=== PATIENT | female | born 1955 | race Caucasian/White ===

== ENCOUNTER 2017-12-17 10:43 | Inpatient (IN) | payer BC ==
[2017-12-17 12:08] LABS: ADD MAN DIFF? NO
[2017-12-17] MEDS: SODIUM CHLORIDE 0.9% 1L BAG IV* (12:10)
[2017-12-17 12:12] LABS: BASOPHILS % 0.2 % (0.0-2.0); HEMATOCRIT 37.6 % (37.0-47.0); HEMOGLOBIN 12.4 g/dl (12.0-16.0); LYMPHOCYTES # 1.2 10^3/ul (0.8-2.9); LYMPHOCYTES % 6.1 % (15.0-51.0); MEAN CORPUSCULAR HEMOGLOBIN 28.1 pg (29.0-33.0); MEAN CORPUSCULAR VOLUME 85.1 fl (82.0-101.0); MEAN PLATELET VOLUME 9.2 fl (7.4-10.4); MONOCYTE # 0.8 10^3/ul (0.3-0.9); MONOCYTES % 3.8 % (0.0-11.0); NEUTROPHIL # 17.9 10^3/ul (1.6-7.5); NEUTROPHILS % 89.2 % (39.0-77.0); PLATELET COUNT 229 10^3/UL (140-415); RED BLOOD COUNT 4.42 10^6/ul (4.20-5.40); RED CELL DISTRIBUTION WIDTH 13.8 % (11.5-14.5)
[2017-12-17 12:31] LABS: INR 1.12; PROTIME 14.6 Sec (11.9-14.9); PT RATIO 1.1
[2017-12-17 12:32] LABS: ALANINE AMINOTRANSFERASE 25 IU/L (13-69); ALBUMIN 4.3 g/dl (3.3-4.9); ALBUMIN/GLOBULIN RATIO 1.34; ALKALINE PHOSPHATASE 85 IU/L (42-121); ANION GAP 19 (8-16); ASPARTATE AMINO TRANSFERASE 22 IU/L (15-46); BILIRUBIN,INDIRECT 1.3 mg/dl (0-1.1); BILIRUBIN,TOTAL 1.3 mg/dl (0.2-1.3); BLOOD UREA NITROGEN 34 mg/dl (7-20); CALCIUM 9.4 mg/dl (8.4-10.2); CARBON DIOXIDE 25 mmol/L (21-31); CHLORIDE 97 mmol/L (97-110); GLUCOSE 149 mg/dl (70-220); PARTIAL THROMBOPLASTIN TIME 29.7 Sec (25.0-35.0); POTASSIUM 3.1 mmol/L (3.5-5.1); SODIUM 138 mmol/L (135-144); TOTAL PROTEIN 7.5 g/dl (6.1-8.1)
[2017-12-17 12:40] LABS: LACTIC ACID 2.3 mmol/L (0.5-2.0)
[2017-12-17 12:42] LABS: TROPONIN-I 0.017 ng/ml (0.000-0.120)
[2017-12-17 14:08] LABS: ADD UMIC YES; UR ASCORBIC ACID NEGATIVE (NEGATIVE); UR BACTERIA FEW /HPF (NONE SEEN); UR BILIRUBIN (Dip) NEGATIVE (NEGATIVE); UR BLOOD (Dip) NEGATIVE (NEGATIVE); UR CLARITY SLIGHTLY CLOUDY (CLEAR); UR COLOR YELLOW (YELLOW); UR GLUCOSE (Dip) NEGATIVE (NEGATIVE); UR KETONES (Dip) NEGATIVE (NEGATIVE); UR LEUKOCYTE ESTERASE (Dip) 1+ Leu/ul (NEGATIVE); UR NITRITE (Dip) NEGATIVE (NEGATIVE); UR RBC 1 /HPF (0-5); UR SPECIFIC GRAVITY (Dip) 1.013 (1.003-1.030); UR TOTAL PROTEIN (Dip) 1+ mg/dl (NEGATIVE); UR UROBILINOGEN (Dip) NEGATIVE (NEGATIVE); UR WBC 7 /HPF (0-5)
[2017-12-17] MEDS: CEFEPIME 1GM/50 ML (PMX) 50 ML IVPB (14:21)
[2017-12-17] MEDS: ACETAMINOPHEN 325 MG TAB PO (14:25)
[2017-12-17 14:27] LABS: LACTIC ACID 2.2 mmol/L (0.5-2.0)
[2017-12-17] MEDS ORDERED: ONDANSETRON 4 MG INJ IV (14:30)
[2017-12-17] MEDS: metroNIDAZOLE 500 MG/NS (PMX) 100 ML IVPB (14:44)
[2017-12-17] MEDS: FENTAnyl 50 MCG/ML VIAL IV (14:44)
[2017-12-17] MEDS ORDERED: NACL 0.9% 3 ML SYG IV (15:30)
[2017-12-17] MEDS: VANCOMYCIN 1 GM (PMX) 250 ML IVPB (15:58)
[2017-12-17] MEDS: morphine 2 MG INJ IV (17:50)
[2017-12-17] MEDS: SOD CHLORIDE 0.9% 1,000 ML IV (18:12)
[2017-12-17] MEDS: MEROPENEM 1 GM/50ML(PMX) 50 ML IVPB (18:47)
[2017-12-17] MEDS ORDERED: LIDOCAINE 2% (SDV) 5 ML INJ (21:29)
[2017-12-17] MEDS ORDERED: SUCCINYLCHOLINE CHLORIDE 100 MG/5 ML SYG IV (21:29)
[2017-12-17] MEDS ORDERED: ROCURONIUM 50 MG INJ (21:29)
[2017-12-17] MEDS ORDERED: GLYCOPYRROLATE 0.4 MG INJ ×2 (21:29→22:04)
[2017-12-17] MEDS ORDERED: PROPOFOL 20 ML (21:30)
[2017-12-17] MEDS ORDERED: NEOSTIGMINE 3 MG/3 ML SYRINGE (21:30)
[2017-12-17] MEDS ORDERED: MEPERIDINE 100 MG INJ (21:30)
[2017-12-17] MEDS ORDERED: BUPIVACAINE 0.25%/EPI (MDV) 50 ML VIAL INJ (21:39)
[2017-12-17] MEDS ORDERED: METOCLOPRAMIDE 10 MG INJ (22:04)
[2017-12-17] MEDS ORDERED: ONDANSETRON 4 MG INJ (22:04)
[2017-12-17] MEDS ORDERED: EPHEDrine 50 MG INJ (22:04)
[2017-12-17] MEDS: BUPIVACAINE 0.5% (SDV) 30 ML INJ (22:17)
[2017-12-17] MEDS ORDERED: morphine 2 MG INJ IV (23:00)
[2017-12-17] MEDS ORDERED: OXYCODONE/ACETAMINOPHEN (5/325) TAB PO (23:00)
[2017-12-18] MEDS ORDERED: PIPER-TAZO 3.375 GM IV (PMX) 100 ML IVPB (02:00)
[2017-12-18] MEDS ORDERED: VANCOMYCIN IV PER PHARMACY XX (02:00)
[2017-12-18] MEDS ORDERED: morphine 2 MG INJ IV (02:00)
[2017-12-18] MEDS: SOD CHLORIDE 0.9% 1,000 ML IV (04:30)
[2017-12-18] MEDS: VANCOMYCIN 1 GM 250 ML IVPB (04:30)
[2017-12-18] MEDS: MEROPENEM 1 GM/50ML(PMX) 50 ML IVPB (05:52)
[2017-12-18 07:46] LABS: ADD MAN DIFF? NO
[2017-12-18 07:52] LABS: WHITE BLOOD COUNT 13.6 10^3/ul (4.8-10.8)
[2017-12-18 07:52] LABS: BASOPHILS % 0.1 % (0.0-2.0); HEMATOCRIT 29.9 % (37.0-47.0); HEMOGLOBIN 9.9 g/dl (12.0-16.0); LYMPHOCYTES # 0.6 10^3/ul (0.8-2.9); LYMPHOCYTES % 4.5 % (15.0-51.0); MEAN CORPUSCULAR HEMOGLOBIN 28.7 pg (29.0-33.0); MEAN CORPUSCULAR HGB CONC 33.1 g/dl (32.0-37.0); MEAN CORPUSCULAR VOLUME 86.7 fl (82.0-101.0); MEAN PLATELET VOLUME 9.6 fl (7.4-10.4); MONOCYTE # 0.5 10^3/ul (0.3-0.9); NEUTROPHIL # 12.4 10^3/ul (1.6-7.5); PLATELET COUNT 160 10^3/UL (140-415); RED BLOOD COUNT 3.45 10^6/ul (4.20-5.40)
[2017-12-18 08:04] LABS: HEMOGLOBIN A1C 5.7 % (0-5.9)
[2017-12-18] MEDS: OXYCODONE/ACETAMINOPHEN (5/325) TAB PO ×3 (08:49→20:15)
[2017-12-18 12:19] LABS: ANION GAP 12 (8-16); BLOOD UREA NITROGEN 14 mg/dl (7-20); CALCIUM 8.3 mg/dl (8.4-10.2); CARBON DIOXIDE 22 mmol/L (21-31); CHLORIDE 110 mmol/L (97-110); CREATININE 0.87 mg/dl (0.44-1.00); GLUCOSE 103 mg/dl (70-220); SODIUM 141 mmol/L (135-144)
[2017-12-18 12:22] LABS: POTASSIUM 2.9 mmol/L (3.5-5.1)
[2017-12-18] MEDS: POTASSIUM CHLORIDE 20 MEQ POWDER FOR ORAL SOLN PO ×2 (14:15→17:45)
[2017-12-18] MEDS: ONDANSETRON 4 MG INJ IV (20:15)
[2017-12-19] MEDS: ONDANSETRON 4 MG INJ IV (03:54)
[2017-12-19 06:55] LABS: CREATININE 0.77 mg/dl (0.44-1.00)
[2017-12-19 06:55] LABS: BLOOD UREA NITROGEN 13 mg/dl (7-20)
[2017-12-19 08:18] LABS: ANION GAP 9 (8-16); BLOOD UREA NITROGEN 13 mg/dl (7-20); CALCIUM 8.9 mg/dl (8.4-10.2); CARBON DIOXIDE 24 mmol/L (21-31); CHLORIDE 110 mmol/L (97-110); CREATININE 0.77 mg/dl (0.44-1.00); GLUCOSE 117 mg/dl (70-220); MAGNESIUM 2.1 mg/dl (1.7-2.5); POTASSIUM 3.8 mmol/L (3.5-5.1); SODIUM 139 mmol/L (135-144)
[2017-12-19 10:25] LABS: ADD MAN DIFF? NO
[2017-12-19 10:27] LABS: WHITE BLOOD COUNT 12.9 10^3/ul (4.8-10.8)
[2017-12-19 10:27] LABS: BASOPHILS % 0.2 % (0.0-2.0); HEMATOCRIT 30.2 % (37.0-47.0); LYMPHOCYTES # 0.7 10^3/ul (0.8-2.9); LYMPHOCYTES % 5.2 % (15.0-51.0); MEAN CORPUSCULAR HEMOGLOBIN 28.8 pg (29.0-33.0); MEAN CORPUSCULAR HGB CONC 33.1 g/dl (32.0-37.0); MEAN PLATELET VOLUME 9.9 fl (7.4-10.4); MONOCYTE # 0.6 10^3/ul (0.3-0.9); MONOCYTES % 4.8 % (0.0-11.0); NEUTROPHIL # 11.6 10^3/ul (1.6-7.5); NEUTROPHILS % 89.5 % (39.0-77.0); PLATELET COUNT 211 10^3/UL (140-415); RED BLOOD COUNT 3.47 10^6/ul (4.20-5.40); RED CELL DISTRIBUTION WIDTH 14.2 % (11.5-14.5)
[2017-12-19] MEDS: ACETAMINOPHEN 325 MG TAB PO (21:58)
[2017-12-19] MEDS ORDERED: IBUPROFEN 400 MG TAB PO (22:00)
[2017-12-20 10:55] LABS: ADD MAN DIFF? NO
[2017-12-20 10:58] LABS: WHITE BLOOD COUNT 9.4 10^3/ul (4.8-10.8)
[2017-12-20 10:58] LABS: BASOPHILS % 0.2 % (0.0-2.0); EOSINOPHILS % 0.2 % (0.0-7.0); HEMATOCRIT 30.5 % (37.0-47.0); LYMPHOCYTES # 0.8 10^3/ul (0.8-2.9); LYMPHOCYTES % 8.3 % (15.0-51.0); MEAN CORPUSCULAR HGB CONC 32.8 g/dl (32.0-37.0); MEAN CORPUSCULAR VOLUME 85.4 fl (82.0-101.0); MEAN PLATELET VOLUME 9.4 fl (7.4-10.4); MONOCYTE # 0.8 10^3/ul (0.3-0.9); MONOCYTES % 8.3 % (0.0-11.0); NEUTROPHIL # 7.8 10^3/ul (1.6-7.5); NEUTROPHILS % 82.7 % (39.0-77.0); PLATELET COUNT 223 10^3/UL (140-415); RED BLOOD COUNT 3.57 10^6/ul (4.20-5.40)
[2017-12-20] MEDS: metroNIDAZOLE 500 MG TAB PO ×2 (14:00→21:54)
[2017-12-20] MEDS ORDERED: morphine LIQ (10 MG/5 ML) CUP PO (16:30)
[2017-12-20] MEDS: CIPROFLOXACIN 500 MG TAB PO (18:02)
[2017-12-20] MEDS: ACETAMINOPHEN 325 MG TAB PO (21:54)
[2017-12-21] MEDS: metroNIDAZOLE 500 MG TAB PO ×3 (05:39→22:20)
[2017-12-21] MEDS: CIPROFLOXACIN 500 MG TAB PO ×2 (05:39→17:37)
[2017-12-21] MEDS: ACETAMINOPHEN 325 MG TAB PO (19:40)
[2017-12-22] MEDS: metroNIDAZOLE 500 MG TAB PO ×2 (06:34→13:33)
[2017-12-22] MEDS: CIPROFLOXACIN 500 MG TAB PO ×2 (06:34→15:11)
[2017-12-22 06:51] LABS: ADD MAN DIFF? NO
[2017-12-22 07:00] LABS: WHITE BLOOD COUNT 9.3 10^3/ul (4.8-10.8)
[2017-12-22 07:00] LABS: BASOPHILS % 0.2 % (0.0-2.0); EOSINOPHILS # 0.1 10^3/ul (0.0-0.5); EOSINOPHILS % 0.6 % (0.0-7.0); HEMATOCRIT 29.7 % (37.0-47.0); HEMOGLOBIN 9.8 g/dl (12.0-16.0); LYMPHOCYTES # 1.5 10^3/ul (0.8-2.9); LYMPHOCYTES % 15.6 % (15.0-51.0); MEAN CORPUSCULAR HEMOGLOBIN 28.2 pg (29.0-33.0); MEAN CORPUSCULAR VOLUME 85.6 fl (82.0-101.0); MEAN PLATELET VOLUME 8.7 fl (7.4-10.4); MONOCYTE # 0.8 10^3/ul (0.3-0.9); MONOCYTES % 8.9 % (0.0-11.0); NEUTROPHIL # 6.9 10^3/ul (1.6-7.5); NEUTROPHILS % 74.1 % (39.0-77.0); PLATELET COUNT 269 10^3/UL (140-415); RED BLOOD COUNT 3.47 10^6/ul (4.20-5.40)
[2017-12-22 07:26] LABS: ANION GAP 13 (8-16); BLOOD UREA NITROGEN 8 mg/dl (7-20); CALCIUM 8.9 mg/dl (8.4-10.2); CARBON DIOXIDE 25 mmol/L (21-31); CHLORIDE 107 mmol/L (97-110); CREATININE 0.68 mg/dl (0.44-1.00); GLUCOSE 94 mg/dl (70-220); MAGNESIUM 1.8 mg/dl (1.7-2.5); PHOSPHORUS 3.6 mg/dl (2.5-4.9); SODIUM 141 mmol/L (135-144)
== END 2017-12-22 15:00 | disposition home or self-care (01) | DRG 853 ==
LOC: E/R 10:43 → MS4 14:16
PROC: 0DTJ4ZZ Resection of Appendix, Percutaneous Endoscopic Approach (ICD-10-PCS; principal; 2017-12-17 20:00)
DX: A41.9 Sepsis, unspecified organism (principal); K35.3 Acute appendicitis with localized peritonitis; E87.2 Acidosis; N17.9 Acute kidney failure, unspecified; N39.0 Urinary tract infection, site not specified; I10 Essential (primary) hypertension; M19.90 Unspecified osteoarthritis, unspecified site; E87.6 Hypokalemia; R65.20 Severe sepsis without septic shock; E80.6 Other disorders of bilirubin metabolism
CPT/HCPCS: 36415; 71045; 74176; 80048; 80053; 81001; 82565; 83036; 83605; 83735; 84100; 84484; 84520; 85025; 85610; 85730; 87040; 87070; 87075; 87086; 88304; 93005; 99291-25